=== PATIENT | female | born 1990 | race Caucasian/White ===

== ENCOUNTER 2017-02-09 23:05 | Emergency (ER) | payer SELFPAY ==
--- NOTE | 2017-02-09 23:38 | EDM.PDOC ---
ED HISTORY OF PRESENT ILLNESS - General Chief Complaint: Respiratory Problem Stated Complaint: SICK Time Seen by Provider: 02/09/17 23:15 Source of Information: Reports: Patient History Limitations: Reports: No limitations - History of Present Illness INITIAL COMMENTS - FREE TEXT/NARRATIVE: c/o sore throat sinus congestion cough since yesterday. Symptoms came on all at once. Achey. Severity: moderate - Related Data Allergies/ADRs: Allergies Allergy/AdvReac Type Severity Reaction Status Date / Time nickel Allergy Rash Verified 02/09/17 23:16 sulfamethoxazole Allergy Rash Verified 02/09/17 23:16 [From Bactrim] trimethoprim [From Bactrim] Allergy Rash Verified 02/09/17 23:16 Home Meds: Home Meds . 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: Musculoskeletal History: Reports: Back pain, chronic Neurological History: Reports: Concussion, Migraines Psychiatric History: Reports: ADD, Anxiety, Depression, Panic attack - Infectious Disease History Infectious Disease History: Reports: Chicken pox - Past Surgical History GI Surgical History: Reports: Hernia, abdominal Female Surgical History: Reports: section Musculoskeletal Surgical History: Reports: Other (see below) Other Musculoskeletal Surgeries/Procedures:: Umbilical hernia repair 2008 Social & Family History - Family History Family Medical History: Noncontributory - Tobacco Use Smoking Status *Q: Current Some Day Smoker Years of Tobacco use: 1 Packs/Tins Daily: 0.1 Used Tobacco, but Quit: Yes Month Tobacco Last Used: unkown Second Hand Smoke Exposure: Yes - Caffeine Use Caffeine Use: Reports: Coffee, Soda - Alcohol Use Days Per Week of Alcohol Use: 0 - Recreational Drug Use Recreational Drug Use: No - Living Situation & Occupation Living situation: Reports: with significant other Occupation: employed ED ROS GENERAL - Review of Systems Review Of Systems: See Below Constitutional: Reports: fever, decreased appetite HEENT: Reports: Ear pain, Throat pain Respiratory: Reports: Cough GI/Abdominal: Reports: No symptoms Musculoskeletal: Reports: other (generalized aches) Neurological: Reports: No Symptoms ED EXAM, GENERAL - Physical Exam Exam: See Below Exam Limited By: No limitations General Appearance: alert, mild distress Eye Exam: bilateral eye: EOMI Ears: normal external exam. No: normal TMs (red bilateral) Nose: normal inspection Throat/Mouth: Normal inspection Head: atraumatic, normocephalic Neck: normal inspection Respiratory/Chest: no respiratory distress, lungs clear, other (rare loose bronchial cough) GI/Abdominal: normal bowel sounds Back Exam: normal inspection Neurological: alert, oriented, normal cognition Psychiatric: normal affect, anxious Skin Exam: Warm, Dry, Intact, Normal color Course - Vital Signs Last Recorded V/S: Last Vital Signs Temp 98.4 F 02/10/17 00:40 Pulse 81 02/10/17 00:40 Resp 15 02/10/17 00:40 BP 104/58 L 02/10/17 00:40 Pulse Ox 99 02/10/17 00:40 - Orders/Labs/Meds Orders: Active Orders 24 hr Category Date Time Status CULTURE STREP A CONFIRMATION [] Stat Lab 02/09/17 23:10 Results STREP SCRN A RAPID W CULT CONF [] Stat Lab 02/09/17 23:10 Results Labs: Laboratory Tests 02/09/17 02/09/17 Range/Units 23:45 23:45 WBC 7.4 (5.0-10.0) 10^3/uL RBC 4.97 (4.2-5.4) 10^6/uL Hgb 13.3 (12.0-16.0) g/dL Hct 40.1 (37.0-47.0) % MCV 80.7 (80-100) fL MCH 26.8 L (27.0-34.0) pg MCHC 33.2 (33.0-35.0) g/dL Plt Count 228 (150-450) 10^3/uL Neut % (Auto) 55.0 (42.2-75.2) % Lymph % (Auto) 32.6 (20.5-50.1) % [place] % (Auto) 10.7 H (2-8) % Eos % (Auto) 1.4 (1.0-3.0) % Baso % (Auto) 0.3 (0.0-1.0) % Sodium 136 (135-145) mmol/L Potassium 3.5 L (3.6-5.0) mmol/L Chloride 101 (101-111) mmol/L Carbon Dioxide 27.0 (21.0-31.0) mmol/L Anion Gap 11.5 BUN 15 (7-18) mg/dL Creatinine 0.7 (0.6-1.3) mg/dL Est Cr Clr Drug Dosing 118.43 mL/min Estimated GFR (MDRD) > 60 BUN/Creatinine Ratio 21.42 Glucose 97 (74-105) mg/dL Calcium 8.9 (8.4-10.2) mg/dl Total Bilirubin 0.4 (0.2-1.0) mg/dL AST 30 (10-42) IU/L ALT 38 (10-60) IU/L Alkaline Phosphatase 57 (42-121) IU/L Total Protein 7.9 (6.7-8.2) g/dl Albumin 4.2 (3.2-5.5) g/dl Globulin 3.7 Albumin/Globulin Ratio 1.14 Meds: Medications Discontinued Medications Generic Name Dose Route Start Last Admin Trade Name Freq PRN Reason Stop Dose Admin Acetaminophen 650 mg 02/09/17 23:43 02/09/17 23:53 Tylenol PO 02/09/17 23:44 650 mg NOW ONE Administration Amoxicillin 500 mg 02/10/17 00:52 02/10/17 00:57 Amoxil PO 02/10/17 00:53 500 mg ONETIME ONE Administration Sodium Chloride 1,000 mls @ 999 mls/hr 02/09/17 23:41 02/09/17 23:48 Normal Saline IV 02/10/17 00:41 999 mls/hr .BOLUS ONE Administration Ketorolac Tromethamine 30 mg 02/09/17 23:42 02/09/17 23:55 Toradol IVPUSH 02/09/17 23:43 30 mg ONETIME ONE Administration Ondansetron HCl 4 mg 02/09/17 23:43 02/09/17 23:54 Zofran IV 02/09/17 23:44 4 mg ONETIME ONE Administration Departure - Departure Time of Disposition: 00:50 Disposition: Home, Self-Care 01 Condition: good Clinical Impression: URI (upper respiratory infection) Qualifiers: URI type: unspecified URI Qualified Code(s): J06.9 - Acute upper respiratory infection, unspecified Otitis Qualifiers: Laterality: bilateral Qualified Code(s): H66.93 - Otitis media, unspecified, bilateral Instructions: Otitis Media, Adult, [id number] Forms: ED Department Discharge Additional Instructions: alternate tylenol and ibuprofen for fever body aches increase fluid intake robitussin or muccinex per package instructions for cough amoxicillin 500mg one three times daily for one week - My Orders Last 24 Hours: My Active Orders 02/09/17 23:10 CULTURE STREP A CONFIRMATION [RM] Stat STREP SCRN A RAPID W CULT CONF [] Stat - Assessment/Plan Last 24 Hours: My Active Orders 02/09/17 23:10 CULTURE STREP A CONFIRMATION [RM] Stat STREP SCRN A RAPID W CULT CONF [RM] Stat
[2017-02-09] MEDS ORDERED: Sodium Chloride 0.9% 1,000 ML IV ONE (23:41)
[2017-02-09] MEDS ORDERED: Ketorolac 30 MG/ML SDV IVPUSH ONE (23:42)
[2017-02-09] MEDS ORDERED: Ondansetron 4 MG/2 ML SDV IV ONE (23:43)
[2017-02-09] MEDS ORDERED: Acetaminophen 325 MG Tab PO ONE (23:43)
[2017-02-10 00:10] LABS: CHLORIDE,CL 101 mmol/L (101-111); SODIUM,NA 136 mmol/L (135-145)
[2017-02-10 00:41] VITALS: BP 104/58
[2017-02-10] MEDS ORDERED: Amoxicillin 500 MG Cap PO ONE (00:52)
== END 2017-02-10 01:06 | disposition home or self-care (01) ==
LOC: DL.ED 23:05
DX: J06.9 Acute upper respiratory infection, unspecified (principal); H66.93 Otitis media, unspecified, bilateral; F41.9 Anxiety disorder, unspecified; F32.9 Major depressive disorder, single episode, unspecified; Z88.2 Allergy status to sulfonamides; Z88.8 Allergy status to other drugs, medicaments and biological substances
CPT/HCPCS: 36415; 80053; 85025; 87081; 87430; 87804; 96361; 96374; 96375; 99283; A9270; J1885; J2405; J7030; 99284

== ENCOUNTER 2017-03-30 23:36 | Emergency (ER) | payer MEDICAID ==
[2017-03-30 23:53] VITALS: BP 165/95
[2017-03-31 00:22] LABS: CHLORIDE,CL 101 mmol/L (101-111); SODIUM,NA 136 mmol/L (135-145)
--- NOTE | 2017-03-31 00:46 | EDM.PDOC ---
ED HPI GENERAL MEDICAL PROBLEM - General Chief Complaint: General Stated Complaint: CRAMPS,DIZZINESS,NAUSEA, [id number] Time Seen by Provider: 03/30/17 23:50 Source of Information: Reports: Patient History Limitations: Reports: No Limitations - History of Present Illness INITIAL COMMENTS - FREE TEXT/NARRATIVE: c/o dizziness when turning head today, vomited twice, pelvic cramps. No menses for past 5 months since IUD removed. No cold sx. Ocassional nausea. Onset: today Duration: Hour(s):, Intermittent Location: Reports: head, pelvis Worsens with: Reports: Movement Associated Symptoms: Reports: loss of appetite, nausea/vomiting. Denies: cough , fever/chills, headaches, weakness Pelvic Pain Score (Numeric/FACES): 9 - Related Data Allergies Allergy/AdvReac Type Severity Reaction Status Date / Time nickel Allergy Rash Verified 03/30/17 23:56 sulfamethoxazole Allergy Rash Verified 03/30/17 23:56 [From Bactrim] trimethoprim [From Bactrim] Allergy Rash Verified 03/30/17 23:56 Home Meds: Home Meds . 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: Musculoskeletal History: Reports: Back pain, chronic Neurological History: Reports: Concussion, Migraines Psychiatric History: Reports: ADD, Anxiety, Depression, Panic attack Endocrine/Metabolic History: Reports: None Hematologic History: Reports: None Immunologic History: Reports: None Oncologic (Cancer) History: Reports: None Dermatologic History: Reports: None - Infectious Disease History Infectious Disease History: Reports: Chicken pox - Past Surgical History GI Surgical History: Reports: Hernia, abdominal Female Surgical History: Reports: section Musculoskeletal Surgical History: Reports: Other (see below) Other Musculoskeletal Surgeries/Procedures:: Umbilical hernia repair 2008 Social & Family History - Family History Family Medical History: Noncontributory - Tobacco Use Smoking Status *Q: Never Smoker Years of Tobacco use: 1 Packs/Tins Daily: 0.1 Used Tobacco, but Quit: Yes Month Tobacco Last Used: unkown Second Hand Smoke Exposure: No - Caffeine Use Caffeine Use: Reports: Coffee, Soda - Alcohol Use Days Per Week of Alcohol Use: 0 - Recreational Drug Use Recreational Drug Use: No - Living Situation & Occupation Living situation: Reports: with significant other Occupation: employed ED ROS GENERAL - Review of Systems Review Of Systems: See Below Constitutional: Reports: Decreased Appetite HEENT: Reports: No Symptoms Respiratory: Reports: No Symptoms Cardiovascular: Reports: No Symptoms GI/Abdominal: Reports: Vomiting (x2) : Reports: Irregular Menses, Pain (light cramping twinges). Denies: Frequency , Urgency Musculoskeletal: Reports: No Symptoms Skin: Reports: No Symptoms Neurological: Reports: Other (dizziness when turns head rapidly or rolls over, none noted when moving from sitting to standing). Denies: Headache Psychiatric: Reports: No Symptoms Hematologic/Lymphatic: Reports: No Symptoms ED EXAM, GENERAL - Physical Exam Exam: See Below Exam Limited By: No Limitations General Appearance: Alert, No Apparent Distress (visiting with friend, bright lights on easily and rapidly turns head to demonstrate when she fells dizzy and no symptoms reproduced. Texting on phone.) Eye Exam: Bilateral Eye: EOMI, Nystagmus (end phase lateral), PERRL Ears: Normal External Exam, Normal TMs Nose: Normal Inspection Throat/Mouth: Normal Inspection Head: Atraumatic, Normocephalic Neck: Normal Inspection Respiratory/Chest: No Respiratory Distress, Lungs Clear Cardiovascular: Normal Peripheral Pulses, Regular Rate, Rhythm GI/Abdominal: Normal Bowel Sounds, Soft, Non-Tender Back Exam: Normal Inspection Extremities: Normal Inspection Neurological: Alert, Oriented, CN II-XII Intact, Normal Cognition, Normal Gait Psychiatric: Normal Affect, Normal Mood Skin Exam: Warm, Dry, Intact, Normal Color Course - Vital Signs Last Recorded V/S: Last Vital Signs Temp 95.7 F 03/30/17 23:48 Pulse 66 03/30/17 23:48 Resp 18 03/30/17 23:48 BP 165/95 H 03/30/17 23:48 Pulse Ox 97 03/30/17 23:48 - Orders/Labs/Meds Labs: Laboratory Tests 03/30/17 03/30/17 03/30/17 Range/Units 23:50 23:50 23:56 WBC 7.1 (5.0-10.0) 10^3/uL RBC 5.18 (4.2-5.4) 10^6/uL Hgb 13.6 (12.0-16.0) g/dL Hct 41.3 (37.0-47.0) % MCV 79.7 L (80-100) fL MCH 26.3 L (27.0-34.0) pg MCHC 32.9 L (33.0-35.0) g/dL Plt Count 284 (150-450) 10^3/uL Neut % (Auto) 43.1 (42.2-75.2) % Lymph % (Auto) 45.5 (20.5-50.1) % [place] % (Auto) 8.9 H (2-8) % Eos % (Auto) 2.4 (1.0-3.0) % Baso % (Auto) 0.1 (0.0-1.0) % Sodium (135-145) mmol/L Potassium (3.6-5.0) mmol/L Chloride (101-111) mmol/L Carbon Dioxide (21.0-31.0) mmol/L Anion Gap BUN (7-18) mg/dL Creatinine (0.6-1.3) mg/dL Est Cr Clr Drug Dosing mL/min Estimated GFR (MDRD) BUN/Creatinine Ratio Glucose (74-105) mg/dL Calcium (8.4-10.2) mg/dl Total Bilirubin (0.2-1.0) mg/dL AST (10-42) IU/L ALT (10-60) IU/L Alkaline Phosphatase (42-121) IU/L Total Protein (6.7-8.2) g/dl Albumin (3.2-5.5) g/dl Globulin Albumin/Globulin Ratio Amylase (28-100) U/L Urine Color Yellow (YELLOW) Urine Appearance Slightly cloudy (CLEAR) Urine pH 7.0 (5.0-9.0) Ur Specific [place] 1.020 (1.005-1.030) Urine Protein Trace H (NEGATIVE) Urine Glucose (UA) Negative (NEGATIVE) Urine Ketones Trace H (NEGATIVE) Urine Occult Blood Negative (NEGATIVE) Urine Nitrite Negative (NEGATIVE) Urine Bilirubin Negative (NEGATIVE) Urine Urobilinogen 1.0 (0.2-1.0) mg/dL Ur Leukocyte Esterase Negative (NEGATIVE) Urine RBC Not seen /HPF Urine WBC 0-5 (0-5/HPF) /HPF Ur Epithelial Cells Few /HPF Amorphous Sediment Many H (0/HPF) /HPF Urine Bacteria Moderate H (0-FEW/HPF) /HPF Urine HCG, Qual Negative 03/30/17 Range/Units 23:56 WBC (5.0-10.0) 10^3/uL RBC (4.2-5.4) 10^6/uL Hgb (12.0-16.0) g/dL Hct (37.0-47.0) % MCV (80-100) fL MCH (27.0-34.0) pg MCHC (33.0-35.0) g/dL Plt Count (150-450) 10^3/uL Neut % (Auto) (42.2-75.2) % Lymph % (Auto) (20.5-50.1) % [place] % (Auto) (2-8) % Eos % (Auto) (1.0-3.0) % Baso % (Auto) (0.0-1.0) % Sodium 136 (135-145) mmol/L Potassium 3.4 L (3.6-5.0) mmol/L Chloride 101 (101-111) mmol/L Carbon Dioxide 28.0 (21.0-31.0) mmol/L Anion Gap 10.4 BUN 15 (7-18) mg/dL Creatinine 1.0 (0.6-1.3) mg/dL Est Cr Clr Drug Dosing 82.90 mL/min Estimated GFR (MDRD) > 60 BUN/Creatinine Ratio 15.00 Glucose 115 H (74-105) mg/dL Calcium 9.1 (8.4-10.2) mg/dl Total Bilirubin 0.5 (0.2-1.0) mg/dL AST 37 (10-42) IU/L ALT 40 (10-60) IU/L Alkaline Phosphatase 65 (42-121) IU/L Total Protein 7.7 (6.7-8.2) g/dl Albumin 4.1 (3.2-5.5) g/dl Globulin 3.6 Albumin/Globulin Ratio 1.14 Amylase 60 (28-100) U/L Urine Color (YELLOW) Urine Appearance (CLEAR) Urine pH (5.0-9.0) Ur Specific [place] (1.005-1.030) Urine Protein (NEGATIVE) Urine Glucose (UA) (NEGATIVE) Urine Ketones (NEGATIVE) Urine Occult Blood (NEGATIVE) Urine Nitrite (NEGATIVE) Urine Bilirubin (NEGATIVE) Urine Urobilinogen (0.2-1.0) mg/dL Ur Leukocyte Esterase (NEGATIVE) Urine RBC /HPF Urine WBC (0-5/HPF) /HPF Ur Epithelial Cells /HPF Amorphous Sediment (0/HPF) /HPF Urine Bacteria (0-FEW/HPF) /HPF Urine HCG, Qual Departure - Departure Time of Disposition: 00:38 Disposition: Home, Self-Care 01 Condition: good Clinical Impression: Pelvic cramping, Negative test BPV (benign positional vertigo) Qualifiers: Laterality: unspecified laterality Qualified Code(s): H81.10 - Benign paroxysmal vertigo, unspecified ear - Discharge Information Instructions: Benign Positional Vertigo Referrals: Nicky Sylvester MD [Primary Care Provider] - Forms: ED Department Discharge Additional Instructions: light bland diet ,advance as tolerated increase fluids gradually if nausea present clinic next week if symptoms continue change positions slowly over the counter meclizine 25mg every 6 hours as needed for dizziness
== END 2017-03-31 00:49 | disposition home or self-care (01) ==
LOC: DL.ED 23:36
DX: H81.10 Benign paroxysmal vertigo, unspecified ear (principal); R10.2 Pelvic and perineal pain; F98.8 Other specified behavioral and emotional disorders with onset usually occurring in childhood and adolescence; F41.9 Anxiety disorder, unspecified; F32.9 Major depressive disorder, single episode, unspecified; Z32.02 Encounter for pregnancy test, result negative; Z88.2 Allergy status to sulfonamides; Z88.8 Allergy status to other drugs, medicaments and biological substances
CPT/HCPCS: 36415; 80053; 81001; 81025; 82150; 85025; 99284

== ENCOUNTER 2017-10-17 05:26 | Emergency (ER) | payer BC, MEDICAID ==
--- NOTE | 2017-10-17 05:42 | EDM.PDOC ---
ED HPI GENERAL MEDICAL PROBLEM - General Chief Complaint: Lower Extremity Injury/Pain Stated Complaint: FRACTURED FOOT [id number] Time Seen by Provider: 10/17/17 05:40 Source of Information: Reports: Patient History Limitations: Reports: No Limitations - History of Present Illness INITIAL COMMENTS - FREE TEXT/NARRATIVE: c/o pain to right foot and outer ankle. 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 Onset: Today Right Feet Pain Score (Numeric/FACES): 10 - Related Data Allergies Allergy/AdvReac Type Severity Reaction Status Date / Time nickel Allergy Rash Verified 10/17/17 05:29 sulfamethoxazole Allergy Rash Verified 10/17/17 05:29 [From Bactrim] trimethoprim [From Bactrim] Allergy Rash Verified 10/17/17 05:29 Home Meds: Home Meds . 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: Musculoskeletal History: Reports: Back Pain, Chronic Neurological History: Reports: Concussion, Migraines Psychiatric History: Reports: ADD, Anxiety, Depression, Panic Attack Endocrine/Metabolic History: Reports: None Hematologic History: Reports: None Immunologic History: Reports: None Oncologic (Cancer) History: Reports: None Dermatologic History: Reports: None - Infectious Disease History Infectious Disease History: Reports: Chicken Pox - Past Surgical History GI Surgical History: Reports: Hernia, Abdominal Female Surgical History: Reports: Section Musculoskeletal Surgical History: Reports: Other (See Below) Social & Family History - Family History Family Medical History: Noncontributory - Tobacco Use Smoking Status *Q: Never Smoker Years of Tobacco use: 1 Packs/Tins Daily: 0.1 Used Tobacco, but Quit: Yes Month Tobacco Last Used: unkown Second Hand Smoke Exposure: No - Caffeine Use Caffeine Use: Reports: Coffee, Soda - Alcohol Use Days Per Week of Alcohol Use: 0 - Recreational Drug Use Recreational Drug Use: No - Living Situation & Occupation Living situation: Reports: with Significant Other Occupation: Employed Review of Systems - Review of Systems Review Of Systems: ROS reveals no pertinent complaints other than HPI. ED EXAM, GENERAL - Physical Exam Exam: See Below Exam Limited By: No Limitations General Appearance: Alert, Mild Distress Eye Exam: Bilateral Eye: EOMI Ears: Normal External Exam Nose: Normal Inspection Throat/Mouth: Normal Inspection Head: Atraumatic, Normocephalic Neck: Full Range of Motion Respiratory/Chest: No Respiratory Distress Cardiovascular: Normal Peripheral Pulses, Regular Rate, Rhythm Extremities: Other (Mild swelling right forefoot, bruising lateral forefoot. Pain with plalpation of lateral ankle. ). No: Normal Range of Motion Neurological: Alert, Oriented, Normal Cognition Psychiatric: Normal Affect Skin Exam: Warm, Dry, Intact Course - Vital Signs Last Recorded V/S: Last Vital Signs Temp 97.6 F 10/17/17 05:34 Pulse 73 10/17/17 05:34 Resp 20 10/17/17 05:34 BP 150/80 H 10/17/17 05:34 Pulse Ox 98 10/17/17 05:34 Departure - Departure Time of Disposition: 06:40 Disposition: Home, Self-Care 01 Condition: Good Clinical Impression: Sprain of foot, right Qualifiers: Encounter type: initial encounter Qualified Code(s): S93.601A - Unspecified sprain of right foot, initial encounter - Discharge Information Instructions: Foot Sprain Forms: ED Department Discharge Additional Instructions: rest ice , elevation, ryan wrap to foot and ankle weight bearing as tolerated clinic follow up next week if not improving tylenol or ibuprofen for discomfort
[2017-10-17 08:59] VITALS: BP 150/80
== END 2017-10-17 06:48 | disposition home or self-care (01) ==
LOC: DL.ED 05:26
DX: S93.601A Unspecified sprain of right foot, initial encounter (principal); Z88.2 Allergy status to sulfonamides; Z88.1 Allergy status to other antibiotic agents; W18.40XA Slipping, tripping and stumbling without falling, unspecified, initial encounter
CPT/HCPCS: 73600-RT; 73630-RT; 99283

== ENCOUNTER 2017-10-21 03:19 | Emergency (ER) | payer BC ==
[2017-10-21 03:46] VITALS: BP 133/69
[2017-10-21 04:07] LABS: CHLORIDE,CL 104 mmol/L (101-111); SODIUM,NA 137 mmol/L (135-145)
--- NOTE | 2017-10-21 04:23 | EDM.PDOC ---
ED HPI GENERAL MEDICAL PROBLEM - General Chief Complaint: REHAB AID Problem Stated Complaint: HEAVY BLEEDING AND BAD PAIN, UNSURE IF [id number] Time Seen by Provider: 10/21/17 04:15 Source of Information: Reports: Patient History Limitations: Reports: No Limitations - History of Present Illness INITIAL COMMENTS - FREE TEXT/NARRATIVE: This 27 yo female patient reports to the ED due to heavy vaginal bleeding. The patient reports she is unsure if she is . The patient reports she has "always" been on control and has had very light menstrual cycles in the past. The patient reports never having this much bleeding. Onset: Today Duration: Constant Location: Reports: Abdomen (lower abdominal cramping) Quality: Reports: Ache (cramping) Severity: Moderate Improves with: Reports: None Worsens with: Reports: None Associated Symptoms: Reports: No Other Symptoms Upper Pelvic Pain Score (Numeric/FACES): 9 - Related Data Allergies Allergy/AdvReac Type Severity Reaction Status Date / Time nickel Allergy Rash Verified 10/21/17 03:47 sulfamethoxazole Allergy Rash Verified 10/21/17 03:47 [From Bactrim] trimethoprim [From Bactrim] Allergy Rash Verified 10/21/17 03:47 Home Meds: Home Meds . 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 History: Reports: None REHAB AID History: Reports: Musculoskeletal History: Reports: Back Pain, Chronic Neurological History: Reports: Concussion, Migraines Psychiatric History: Reports: ADD, Anxiety, Depression, Panic Attack Endocrine/Metabolic History: Reports: None Hematologic History: Reports: None Immunologic History: Reports: None Oncologic (Cancer) History: Reports: None Dermatologic History: Reports: None - Infectious Disease History Infectious Disease History: Reports: Chicken Pox - Past Surgical History GI Surgical History: Reports: Hernia, Abdominal Female Surgical History: Reports: Section Musculoskeletal Surgical History: Reports: Other (See Below) Social & Family History - Family History Family Medical History: Noncontributory - Tobacco Use Smoking Status *Q: Current Some Day Smoker Years of Tobacco use: 2 Packs/Tins Daily: 1 Used Tobacco, but Quit: Yes Month Tobacco Last Used: unkown Second Hand Smoke Exposure: No - Caffeine Use Caffeine Use: Reports: Coffee, Soda, Tea - Alcohol Use Days Per Week of Alcohol Use: 0 Date of Last Drink: 10/20/17 Time of Last Drink: 03:00 - Recreational Drug Use Recreational Drug Use: No - Living Situation & Occupation Living situation: Reports: with Significant Other Occupation: Employed ED ROS GENERAL - Review of Systems Review Of Systems: ROS reveals no pertinent complaints other than HPI. ED EXAM, GI/ABD - Physical Exam Exam: See Below Exam Limited By: No Limitations General Appearance: Alert, WD/WN, Moderate Distress, Obese Eyes: Bilateral: Normal Appearance, EOMI Ears: Normal External Exam, Normal Canal, Hearing Grossly Normal, Normal TMs Nose: Normal Inspection, Normal Mucosa, No Blood Throat/Mouth: Normal Inspection, Normal Lips, Normal Teeth, Normal Gums, Normal Oropharynx, Normal Voice, No Airway Compromise Head: Atraumatic, Normocephalic Neck: Normal Inspection, Supple, Non-Tender, Full Range of Motion Respiratory/Chest: No Respiratory Distress, Lungs Clear, Normal Breath Sounds, No Accessory Muscle Use, Chest Non-Tender Cardiovascular: Normal Peripheral Pulses, Regular Rate, Rhythm, No Edema, No Gallop, No JVD, No Murmur, No Rub GI/Abdominal Exam: Normal Bowel Sounds, Soft, Non-Tender, No Organomegaly, No Distention, No Abnormal Bruit, No Mass, Pelvis Stable, Other (obese) (Female) Exam: Deferred Rectal (Female) Exam: Deferred Back Exam: Normal Inspection, Full Range of Motion, NT Extremities: Normal Inspection, Normal Range of Motion, Non-Tender, Normal Capillary Refill, No Pedal Edema Neurological: Alert, Oriented, CN II-XII Intact, Normal Cognition, Normal Gait, Normal Reflexes, No Motor/Sensory Deficits Psychiatric: Normal Affect, Normal Mood Skin Exam: Warm, Dry, Intact, Normal Color, No Rash Lymphatic: No Adenopathy Course - Vital Signs Last Recorded V/S: Last Vital Signs Temp 36.6 C 10/21/17 03:29 Pulse 86 10/21/17 03:29 Resp 20 10/21/17 03:29 BP 133/69 10/21/17 03:29 Pulse Ox 100 10/21/17 03:29 - Orders/Labs/Meds Orders: Active Orders 24 hr Category Date Time Status DRUG SCREEN URINE BIORAD [URCHEM] Stat Lab 10/21/17 03:29 Uncollected UA W/MICROSCOPIC [URIN] Stat Lab 10/21/17 03:29 Uncollected Labs: Laboratory Tests 10/21/17 10/21/17 10/21/17 Range/Units 03:40 03:40 03:40 WBC 8.2 (5.0-10.0) 10^3/uL RBC 4.75 (4.2-5.4) 10^6/uL Hgb 12.4 (12.0-16.0) g/dL Hct 38.1 (37.0-47.0) % MCV 80.2 (80-100) fL MCH 26.1 L (27.0-34.0) pg MCHC 32.5 L (33.0-35.0) g/dL Plt Count 282 (150-450) 10^3/uL Neut % (Auto) 55.7 (42.2-75.2) % Lymph % (Auto) 33.8 (20.5-50.1) % Bonner % (Auto) 9.2 H (2-8) % Eos % (Auto) 1.1 (1.0-3.0) % Baso % (Auto) 0.2 (0.0-1.0) % Sodium 137 (135-145) mmol/L Potassium 3.8 (3.6-5.0) mmol/L Chloride 104 (101-111) mmol/L Carbon Dioxide 25.0 (21.0-31.0) mmol/L Anion Gap 11.8 BUN 17 (7-18) mg/dL Creatinine 0.9 (0.6-1.3) mg/dL Est Cr Clr Drug Dosing 92.11 mL/min Estimated GFR (MDRD) > 60 BUN/Creatinine Ratio 18.88 Glucose 105 (74-105) mg/dL Calcium 8.8 (8.4-10.2) mg/dl Total Bilirubin 0.5 (0.2-1.0) mg/dL AST 29 (10-42) IU/L ALT 42 (10-60) IU/L Alkaline Phosphatase 53 (42-121) IU/L Total Protein 7.6 (6.7-8.2) g/dl Albumin 3.9 (3.2-5.5) g/dl Globulin 3.7 Albumin/Globulin Ratio 1.05 HCG, Qual Negative HCG, Quant 0 (0-25) mIU/ml Beta HCG, Quant < 1050 mIU/ml Departure - Departure Time of Disposition: 04:21 Disposition: Home, Self-Care 01 Condition: Fair Clinical Impression: Heavy menstrual bleeding Qualifiers: Menorrahagia type: with irregular cycle Qualified Code(s): N92.1 - Excessive and frequent menstruation with irregular cycle - Discharge Information Instructions: Menorrhagia, [id number] Forms: ED Department Discharge Care Plan Goals: The patient was advised of the examination and lab results during the visit. The patient was encouraged to continue to monitor her symptoms. If the patient has any additional symptoms or further concerns, the patient should visit her primary care facility or return to the emergency department. - My Orders Last 24 Hours: My Active Orders 10/21/17 03:29 DRUG SCREEN URINE BIORAD [URCHEM] Stat UA W/MICROSCOPIC [URIN] Stat - Assessment/Plan Last 24 Hours: My Active Orders 10/21/17 03:29 DRUG SCREEN URINE BIORAD [URCHEM] Stat UA W/MICROSCOPIC [URIN] Stat
== END 2017-10-21 04:30 | disposition home or self-care (01) ==
LOC: DL.ED 03:19
DX: N92.1 Excessive and frequent menstruation with irregular cycle (principal); F17.210 Nicotine dependence, cigarettes, uncomplicated; Z88.2 Allergy status to sulfonamides; Z88.1 Allergy status to other antibiotic agents
CPT/HCPCS: 36415; 80053; 84702; 84703; 85025; 99284

== ENCOUNTER 2018-02-27 21:47 | Emergency (ER) | payer BC ==
--- NOTE | 2018-02-27 22:13 | EDM.PDOC ---
ED HPI GENERAL MEDICAL PROBLEM - General Chief Complaint: ENT Problem Stated Complaint: [id number] pain in both ears Time Seen by Provider: 02/27/18 22:13 Source of Information: Reports: Patient, RN, RN Notes Reviewed History Limitations: Reports: No Limitations - History of Present Illness INITIAL COMMENTS - FREE TEXT/NARRATIVE: Pt presents to the ER with c/o pain and buzzing in both ears. She states this began yesterday. She states 2 days ago she began with a runny/stuffy nose, and sinus congestion. Pt denies fever or chills. Bilateral Ear Pain Score (Numeric/FACES): 8 - Related Data Allergies Allergy/AdvReac Type Severity Reaction Status Date / Time nickel Allergy Rash Verified 02/27/18 22:18 sulfamethoxazole Allergy Rash Verified 02/27/18 22:18 [From Bactrim] trimethoprim [From Bactrim] Allergy Rash Verified 02/27/18 22:18 Home Meds: Home Meds . 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 History: Reports: None [employer] History: Reports: Musculoskeletal History: Reports: Back Pain, Chronic Neurological History: Reports: Concussion, Migraines Psychiatric History: Reports: ADD, Anxiety, Depression, Panic Attack Endocrine/Metabolic History: Reports: None Hematologic History: Reports: None Immunologic History: Reports: None Oncologic (Cancer) History: Reports: None Dermatologic History: Reports: None - Infectious Disease History Infectious Disease History: Reports: Chicken Pox - Past Surgical History GI Surgical History: Reports: Hernia, Abdominal Female Surgical History: Reports: Section Musculoskeletal Surgical History: Reports: Other (See Below) Social & Family History - Family History Family Medical History: Noncontributory - Tobacco Use Smoking Status *Q: Current Some Day Smoker Years of Tobacco use: 2 Packs/Tins Daily: 1 Used Tobacco, but Quit: Yes Month/Year Tobacco Last Used: unkown Second Hand Smoke Exposure: No - Caffeine Use Caffeine Use: Reports: Coffee, Soda, Tea - Alcohol Use Days Per Week of Alcohol Use: 0 - Recreational Drug Use Recreational Drug Use: No - Living Situation & Occupation Living situation: Reports: with Significant Other Occupation: Employed ED ROS ENT - Review of Systems Review Of Systems: ROS reveals no pertinent complaints other than HPI. ED EXAM, ENT - Physical Exam Exam: See Below Exam Limited By: No Limitations General Appearance: Alert, WD/WN, No Apparent Distress Eye Exam: Bilateral Eye: EOMI, Normal Inspection Ears: Normal Canal, TM Dullness, TM Fluid Nose: Normal Inspection Mouth/Throat: Normal Inspection, Normal Gums, Normal Lips, Normal Oropharynx, Normal Teeth Head: Atraumatic, Normocephalic Neck: Normal Inspection, Supple, Non-Tender, Full Range of Motion Respiratory/Chest: No Respiratory Distress, Lungs Clear, Normal Breath Sounds, No Accessory Muscle Use, Chest Non-Tender Cardiovascular: Normal Peripheral Pulses, Regular Rate, Rhythm, No Edema, No Gallop, No JVD, No Murmur, No Rub GI/Abdominal: Normal Bowel Sounds, Soft, Non-Tender, No Organomegaly, No Distention, No Abnormal Bruit, No Mass (Female) Exam: Deferred Rectal (Female) Exam: Deferred Back: Normal Inspection, Full Range of Motion Extremities: Normal Inspection, Normal Range of Motion, Non-Tender, No Pedal Edema, Normal Capillary Refill Neurological: Alert, Oriented, CN II-XII Intact, Normal Cognition, Normal Gait, Normal Reflexes, No Motor/Sensory Deficits Psychiatric: Normal Affect, Normal Mood Skin: Warm, Dry, Intact, Normal Color, No Rash Lymphatic: No Adenopathy Course - Vital Signs Last Recorded V/S: Last Vital Signs Temp 97.8 F 02/27/18 22:07 Pulse 68 02/27/18 22:07 Resp 18 02/27/18 22:07 BP 132/81 02/27/18 22:07 Pulse Ox 98 02/27/18 22:07 Departure - Departure Time of Disposition: 22:27 Disposition: Home, Self-Care 01 Condition: Fair Clinical Impression: Acute middle ear effusion Qualifiers: Laterality: bilateral Qualified Code(s): H65.193 - Other acute nonsuppurative otitis media, bilateral - Discharge Information Referrals: PCP,None [Primary Care Provider] - Forms: ED Department Discharge Additional Instructions: Flonase daily for a week Over the counter sudafed Saline nasal rinses Tylenol and/or ibuprofen for pain/fever Follow up with your primary care facility
[2018-02-27 22:18] VITALS: BP 132/81
== END 2018-02-27 22:37 | disposition home or self-care (01) ==
LOC: DL.ED 21:47
DX: H65.193 Other acute nonsuppurative otitis media, bilateral (principal); Z91.048 Other nonmedicinal substance allergy status; Z88.2 Allergy status to sulfonamides; Z88.1 Allergy status to other antibiotic agents; Z87.891 Personal history of nicotine dependence
CPT/HCPCS: 99282

== ENCOUNTER 2018-03-27 17:15 | Emergency (ER) | payer OTHER, BC ==
[2018-03-27] MEDS ORDERED: Acetaminophen/HYDROcodone 325-10 MG Tab PO ONE (17:16)
[2018-03-27] MEDS ORDERED: Morphine 10 MG/ML Syringe IVPUSH ONE ×2 (17:29→18:30)
[2018-03-27] MEDS ORDERED: Ondansetron 4 MG/2 ML SDV IV ONE ×2 (17:29→20:34)
[2018-03-27] MEDS ORDERED: Sodium Chloride 0.9% 1,000 ML IV ONE (17:29)
[2018-03-27] MEDS ORDERED: Sodium Chloride 0.9% 10 ML Syringe FLUSH PRN ×2 (17:30→17:34)
[2018-03-27] MEDS ORDERED: Diphtheria,Pertussis(Acell),Tetanus Vaccine 0.5 ML SDV IM ONE (17:35)
[2018-03-27] MEDS ORDERED: Iopamidol 612 MG/ML 75 ML Bottle IVPUSH ONE (17:44)
[2018-03-27] MEDS ORDERED: Iopamidol 612 MG/ML 50 ML SDV IVPUSH ONE (17:44)
[2018-03-27 18:03] LABS: CHLORIDE,CL 105 mmol/L (101-111); SODIUM,NA 139 mmol/L (135-145)
[2018-03-27] MEDS ORDERED: Bacitracin Oint 1 GM U/D Packet ONE (18:38)
[2018-03-27] MEDS ORDERED: Acetaminophen/HYDROcodone 325-5 MG Tab ONE (21:02)
--- NOTE | 2018-03-29 07:26 | EKG ---
03/27/2018- GABRIEL [place] - FINDINGS: EKG, per my reading, shows sinus rhythm at the rate of 87. MODL /[id number]
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
== END 2018-03-27 21:10 | disposition home or self-care (01) ==
LOC: DL.ED 17:15
DX: S52.352A Displaced comminuted fracture of shaft of radius, left arm, initial encounter for closed fracture (principal); S50.02XA Contusion of left elbow, initial encounter; S80.02XA Contusion of left knee, initial encounter; Z88.2 Allergy status to sulfonamides; Z88.1 Allergy status to other antibiotic agents; Z91.048 Other nonmedicinal substance allergy status; V43.52XA Car driver injured in collision with other type car in traffic accident, initial encounter
CPT/HCPCS: 29105; 36415; 70450; 71260; 72125; 73090; 73560; 73610; 74177; 80053; 80305; 81001; 81025; 82150; 82962; 83690; 84484; 85025; 85610; 85730; 90471; 90715; 93005; 96361; 96374; 96375; 96376; 99285; A9270; G0480; J2270; J2405; J7030; J7050; Q9967

== ENCOUNTER 2019-01-29 07:54 | Day surgery (SDC) | payer MEDICAID ==
[~2019-01-29 07:54] MED LIST: Lactated Ringers 1,000 ML IV SCH
[2019-01-29] MEDS ORDERED: fentaNYL 100 MCG/2 ML SDV IV ONE (07:55)
[2019-01-29] MEDS ORDERED: Propofol 200 MG/20 ML SDV IV ONE (07:55)
[2019-01-29] MEDS ORDERED: Midazolam 1 MG/ML 2 ML SDV IV ONE (07:55)
[2019-01-29] MEDS ORDERED: Rocuronium 100 MG/10 ML MDV IV ONE (07:55)
[2019-01-29] MEDS ORDERED: Glycopyrrolate 0.2 MG/ML 2 ML SDV IV ONE (07:55)
[2019-01-29] MEDS ORDERED: Dexamethasone 4 MG/ML SDV IV ONE (07:55)
[2019-01-29] MEDS ORDERED: Ondansetron 4 MG/2 ML SDV IV ONE ×2 (07:55→13:35)
[2019-01-29] MEDS ORDERED: Ketorolac 30 MG/ML SDV IVPUSH ONE (07:55)
[2019-01-29] MEDS ORDERED: Succinylcholine 200 MG/10 ML MDV IV ONE (07:55)
[2019-01-29] MEDS ORDERED: ceFAZolin 2 GM in Premix Bag 1 BAG IV ONE (09:40)
[2019-01-29] MEDS ORDERED: Scopolamine 1.5 MG Transdermal Patch TRDERM PRN (09:41)
[2019-01-29] MEDS ORDERED: Scopolamine 1.5 MG Transdermal Patch ONE (09:47)
--- NOTE | 2019-01-29 11:44 | OR ---
DATE: 01/29/2019 PREOPERATIVE DIAGNOSES: Chronic cholecystitis and cholelithiasis. POSTOPERATIVE DIAGNOSES: Chronic cholecystitis and cholelithiasis. PROCEDURE: Laparoscopic cholecystectomy. ANESTHESIA: General. ESTIMATED BLOOD LOSS: Minimal. SPECIMEN: Gallbladder and stone. COMPLICATIONS: None. INDICATION FOR PROCEDURE: This 29-year-old female presented to the Surgery Clinic yesterday with several-day history of nausea and vomiting. She has an ultrasound that shows a single stone. PROCEDURE IN DETAIL: After adequate preparation, an umbilical trocar site was made, and a 5-mm trocar was inserted. The abdomen was insufflated and then examined with a laparoscope. No abnormalities or injuries were noted. Three other trocars were placed under direct vision. There were some omental adhesions around the gallbladder. These were taken down by cautery dissection. The cystic triangle structures were then dissected free, and the cystic duct and artery were separately triply clipped and divided. The gallbladder was taken off the liver bed using blunt, sharp, and Bovie dissection; and the gallbladder was removed through the epigastric trocar site. There was no spillage of bile or stones. The right upper quadrant was irrigated with saline and suctioned clear. The abdomen was desufflated, and the skin was closed with Monocryl. [facility] /[id number]
[2019-01-29] MEDS ORDERED: Acetaminophen/oxyCODONE 325-5 MG Tab PO ONE (13:10)
[2019-01-29] MEDS ORDERED: Morphine 2 MG/ML Syringe IVPUSH ONE ×2 (13:22→13:28)
[2019-01-29] MEDS ORDERED: Ondansetron 4 MG/2 ML SDV IVPUSH PRN (13:52)
[2019-01-29] MEDS ORDERED: Acetaminophen/oxyCODONE 325-5 MG Tab PO PRN (13:52)
[2019-01-29] MEDS ORDERED: Morphine 2 MG/ML Syringe IVPUSH PRN (13:52)
[2019-01-29] MEDS ORDERED: Sodium Chloride 0.9% 10 ML Syringe FLUSH PRN (13:55)
--- NOTE | 2019-01-29 13:58 | PCM.SN ---
- Free Text/Narrative Note: Patient is post-op laparoscopic cholecystectomy and cannot control her pain with IV Morphine. Also cannot control her nausea and vomiting with IV Zofran. Will keep overnight for observation.
--- NOTE | 2019-01-30 08:47 | PCM.SN ---
- Free Text/Narrative Note: Stable POD #1. Pain controlled. PO intake good. Wounds clean and dry. Can discharge today. No restrictions on diet or activity. FU if needed. Percocet #20 given for pain.
[2019-01-30 12:04] VITALS: BP 124/63
== END 2019-01-30 09:53 | disposition home or self-care (01) ==
LOC: DL.SDS 07:54 → EDSTATUS 09:30 → DL.MS 13:53 → DL.SDS 01-30 09:53
PROVIDERS: ATTEND Surgery
DX: K80.10 Calculus of gallbladder with chronic cholecystitis without obstruction (principal); Z88.2 Allergy status to sulfonamides; Z91.048 Other nonmedicinal substance allergy status
CPT/HCPCS: A9270-GY; J0330; J0690; J1100; J1885; J2250; J2270; J2405; J2704; J3010; J3490; J7120

== ENCOUNTER 2019-08-26 06:32 | Day surgery (SDC) | payer MEDICAID ==
[~2019-08-26 06:32] MED LIST changes: -Lactated Ringers 1,000 ML IV SCH; +Midazolam 1 MG/ML 2 ML SDV ONE; +fentaNYL 100 MCG/2 ML SDV ONE
[2019-08-26] MEDS ORDERED: Midazolam 1 MG/ML 2 ML SDV IV ONE ×3 (06:33→07:38)
[2019-08-26] MEDS ORDERED: fentaNYL 100 MCG/2 ML SDV IV ONE ×3 (06:33→07:37)
[2019-08-26] MEDS ORDERED: Dextrose 5%-0.45% NaCl 1,000 ML IV SCH (07:00)
[2019-08-26 10:54] VITALS: BP 111/68; PULSE 66
--- NOTE | 2019-08-26 14:11 | OR ---
DATE: 08/26/2019 PROCEDURE: Esophagogastroduodenoscopy and multiple pinch biopsies. INSTRUMENT USED: [id number] Olympus video panendoscope. PREMEDICATIONS: No oral or topical anesthesia used. Fentanyl 100 mcg intravenous, Versed 2 mg intravenous. Nasal O2 cannula. The procedure was done under pulse oximetry, BP recording, and monitor and storage bin tender. INDICATION: The patient with persistent upper abdominal and chest pain, unexplained and responsive to medical measures, also found to be iron deficient. Esophagogastroduodenoscopy is performed for detection of any active erosive lesions, [place] esophagus and/or malignancy also under consideration, H. pylori status to be determined, small bowel biopsies to be obtained for celiac disease if indicated, endoscopic hemostasis therapy if needed. DESCRIPTION OF PROCEDURE: The scope was passed with ease. Adequate visualization of the esophagus was made from proximal to distal areas. No upper esophageal lesions identified. No distal esophageal stricture. No uphill or downhill esophageal varices. No Kelly-Gonzalez tear. No evidence of erosive esophagitis by [place] criteria. No esophageal polyp or tumor mass identified. Z-line was noted at around 36 cm distal to the oral verge, 4- quadrant biopsies were taken and sent for any evidence of intestinal metaplasia. No proximal gastric varices noted. Gastric fundus examination by retroflexion showed no polypoid lesions. No gastric ulcer, malignant mass, or vascular ectasia identified. Multiple pinch biopsies were obtained from the gastric antrum and proximal body and sent for PyloriTek test for H. pylori and histopathology. Duodenal bulb showed no ulcer. Visualized second part of the duodenum was unremarkable. Multiple pinch biopsies, 4 in number, were taken from different areas of the second part of the duodenum and tissues were also obtained from the duodenal bulb at 9 and 12 o'clock positions and sent for any histopathologic evidence of celiac disease. No bleeding was noted from any of the visualized areas at the completion of examination. Photographs were taken of the duodenal bulb, gastric antrum, fundus, and distal esophagus. IMPRESSION: Columnar-lined distal esophagus. The patient tolerated the procedure well. [facility] /[id number]
== END 2019-08-26 10:08 | disposition home or self-care (01) ==
LOC: DL.SDS 06:32
PROVIDERS: ATTEND Internal Medicine Gastroenterology
DX: K31.89 Other diseases of stomach and duodenum (principal); R07.9 Chest pain, unspecified; E61.1 Iron deficiency; E66.09 Other obesity due to excess calories; Z88.2 Allergy status to sulfonamides; Z90.49 Acquired absence of other specified parts of digestive tract; Z68.37 Body mass index [BMI] 37.0-37.9, adult
CPT/HCPCS: 43239; 87077; J2250; J3010; J7042

== ENCOUNTER 2019-12-21 23:31 | Emergency (ER) | payer MEDICAID ==
[2019-12-21 23:47] VITALS: BP 128/83; PULSE 77
[2019-12-22] MEDS ORDERED: Meclizine 12.5 MG Tab PO ONE (00:19)
--- NOTE | 2019-12-22 00:20 | EDM.PDOC ---
ED HPI GENERAL MEDICAL PROBLEM - General Chief Complaint: Headache Stated Complaint: LIGHT HEADED AND DIZZY Time Seen by Provider: 12/22/19 00:10 Source of Information: Reports: Patient History Limitations: Reports: No Limitations - History of Present Illness INITIAL COMMENTS - FREE TEXT/NARRATIVE: josephine comes emergency department today with complaints of headache and dizziness. For most the day she has had an unsteady gait as he feels like the room is spinning. When she closed her eyes and feels like the room is spinning. She has had no recent falls or head injury. She has no fever no chills. No change in visual acuity. No paresthesias of her upper or lower extremities. No change in the functionality of her upper or lower extremity. She's had some nausea without vomiting. No fever no chills. She has had some congestion and pressure in her left ear. No syncope no chest pain. She does have a mild headache and feels more like pressure. 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 Parietal Head Pain Score (Numeric/FACES): 8 - Related Data Allergies Allergy/AdvReac Type Severity Reaction Status Date / Time nickel Allergy Rash Verified 12/21/19 23:48 sulfamethoxazole Allergy Rash Verified 12/21/19 23:48 [From Bactrim] trimethoprim [From Bactrim] Allergy Rash Verified 12/21/19 23:48 Home Meds: Home Meds Acetaminophen [Tylenol Extra Strength] 500 mg PO Q6H PRN 01/28/19 [History] Ferrous Sulfate [Iron] 325 mg PO DAILY 12/21/19 [History] Omeprazole 40 mg PO DAILY 12/21/19 [History] Past Medical History - Past Health History Medical/Surgical History: Denies Medical/Surgical History HEENT History: Reports: Impaired Vision, Otitis Media Cardiovascular History: Reports: None Respiratory History: Reports: None, SOB Other Respiratory History: SOB IS A RECENT ONSET WITH EPIGASTRIC PAIN SHE IS HAVING, FEELS SOB MORE WHEN LYING DOWN Gastrointestinal History: Reports: Cholelithiasis, GERD Genitourinary History: Reports: None [employer] History: Reports: Musculoskeletal History: Reports: Arthritis, Back Pain, Chronic, Fracture Neurological History: Reports: Concussion Psychiatric History: Reports: ADD, Anxiety, Depression, Panic Attack Endocrine/Metabolic History: Reports: None Hematologic History: Reports: None Immunologic History: Reports: None Oncologic (Cancer) History: Reports: None Dermatologic History: Reports: Eczema Other Dermatologic History: ECZEMA ON ELBOWS - Infectious Disease History Infectious Disease History: Reports: Chicken Pox - Past Surgical History Head Surgeries/Procedures: Reports: None HEENT Surgical History: Reports: None Cardiovascular Surgical History: Reports: None Respiratory Surgical History: Reports: None GI Surgical History: Reports: Cholecystectomy, Hernia, Abdominal Other GI Surgeries/Procedures: Umbilical hernia repair 2007 Female Surgical History: Reports: Section Other Female Surgeries/Procedures: X2 C-SECTIONS Endocrine Surgical History: Reports: None Neurological Surgical History: Reports: None Musculoskeletal Surgical History: Reports: ORIF, Other (See Below) Other Musculoskeletal Surgeries/Procedures:: left arm - History Comment History Comment: Please see Problem list for medical history. Social & Family History - Family History Family Medical History: Noncontributory Other Cardiac Family History: Mother: asthma, pneumonia, hypertension, heart condition. Father: hypertension, heart condition - Tobacco Use Smoking Status *Q: Never Smoker Second Hand Smoke Exposure: Yes - Caffeine Use Caffeine Use: Reports: Energy Drinks, Soda Caffeine Use Comment: 8. oz daily - Recreational Drug Use Recreational Drug Use: No - Living Situation & Occupation Living situation: Reports: with Significant Other Occupation: Employed ED ROS GENERAL - Review of Systems Review Of Systems: Comprehensive ROS is negative, except as noted in HPI. - Physical Exam Exam: See Below Exam Limited By: No Limitations General Appearance: Alert, WD/WN, No Apparent Distress Eye Exam: Bilateral Eye: EOMI, Normal Fundi, Nystagmus, PERRL Ears: Normal External Exam, Normal Canal, Normal TMs Nose: Normal Inspection, Normal Mucosa, No Blood Throat/Mouth: Normal Inspection, Normal Lips Head Exam: Atraumatic, Normocephalic Neck: Normal Inspection, Supple, Non-Tender Respiratory/Chest: No Respiratory Distress, Lungs Clear Cardiovascular: Normal Peripheral Pulses, Regular Rate, Rhythm GI/Abdominal: Normal Bowel Sounds, Soft, Non-Tender Neuro Exam (Abbreviated): Alert, Oriented, CN II-XII Intact, Normal Cognition, Normal Gait, Normal Reflexes, No Motor/Sensory Deficits, Other (Taras Hallpike positive to the left ear. With rotary nystagmus.) Back Exam: Normal Inspection, Full Range of Motion Extremities: Normal Inspection, Normal Range of Motion, Normal Capillary Refill Psychiatric: Normal Affect, Normal Mood Skin Exam: Warm, Dry, Intact, Normal Color, No Rash Course - Vital Signs Last Recorded V/S: Last Vital Signs Temp 36.5 C 12/21/19 23:42 Pulse 77 12/21/19 23:42 Resp 18 12/21/19 23:42 BP 128/83 12/21/19 23:42 Pulse Ox 100 12/21/19 23:42 - Orders/Labs/Meds Meds: Medications Discontinued Medications Generic Name Dose Route Start Last Admin Trade Name Maxi PRN Reason Stop Dose Admin Meclizine HCl 25 mg 12/22/19 00:19 12/22/19 00:26 Antivert PO 12/22/19 00:20 25 mg ONETIME ONE Administration - Re-Assessments/Exams Free Text/Narrative Re-Assessment/Exam: 12/22/19 00:18 Eply maneuver isolated to the left ear with complete resolution of the symptoms and feels much better no spinning. Meclizine 25mg PO. 12/22/19 01:15 She was observed and ambulated in the ED without difficulty. I discussed the concerns for vertigo or BPPV and that she appears somewhat dry as her lips are dry and her mouth as well. Lots of fluids over the next few days. PT referral for eval and treat for BPPV vertigo. Meclizine as needed and not to take prior to PT and she is comfortable with this plan and her questions answered. Departure - Departure Time of Disposition: 00:30 Disposition: Home, Self-Care 01 Clinical Impression: Vertigo - Discharge Information Instructions: How to Perform the Laci Maneuver, Dizziness, [id number] Referrals: PCP,None [Primary Care Provider] - Forms: ED Department Discharge Additional Instructions: Lots and lots of fluids over the next few days. Make position changes slowly. See physical therapy on monday for recheck and therapy for vertigo. Do not take Meclizine within 8 hrs of going to physical therapy. Meclizine, 1 tablet three times a day as needed for vertigo symptoms. #12. Return to the ED if new or worsening symptoms. Follow up with PCP in the next 4-6 days if not improving sooner if worse. Sepsis Event Note - Evaluation Sepsis Screening Result: No Definite Risk - Focused Exam Vital Signs: Vital Signs Temp Pulse Resp BP Pulse Ox 12/21/19 23:42 36.5 C 77 18 128/83 100 Date Exam was Performed: 12/22/19 Time Exam was Performed: 01:15 - Assessment/Plan Assessment:: VErtigo Plan: Lots and lots of fluids over the next few days. Make position changes slowly. See physical therapy on monday for recheck and therapy for vertigo. Do not take Meclizine within 8 hrs of going to physical therapy. Meclizine, 1 tablet three times a day as needed for vertigo symptoms. #12. Return to the ED if new or worsening symptoms. Follow up with PCP in the next 4-6 days if not improving sooner if worse.
== END 2019-12-22 00:40 | disposition home or self-care (01) ==
LOC: DL.ED 23:31
DX: R42 Dizziness and giddiness (principal); K21.9 Gastro-esophageal reflux disease without esophagitis; Z88.1 Allergy status to other antibiotic agents; Z91.048 Other nonmedicinal substance allergy status; Z79.899 Other long term (current) drug therapy
CPT/HCPCS: 99283; A9270

== ENCOUNTER 2020-01-02 22:57 | Emergency (ER) | payer MEDICAID ==
[2020-01-02 23:03] VITALS: BP 143/81; PULSE 71
--- NOTE | 2020-01-02 23:21 | EDM.PDOC ---
ED HPI GENERAL MEDICAL PROBLEM - General Chief Complaint: Respiratory Problem Stated Complaint: HARD TO BREATHE, CHEST HURTS Time Seen by Provider: 01/02/20 23:12 Source of Information: Reports: Patient, RN History Limitations: Reports: No Limitations - History of Present Illness INITIAL COMMENTS - FREE TEXT/NARRATIVE: 29 year old female who present to the ER with her significant other for complains of having chest pain after a coughing spell x 10 minutes ago. Patient reports she was talking wit her father on the phone when she started coughing so hard that her chest hurts. She states she was sitting "prop up on three pillows". She states her chest hurts taking deep breaths. She denies any fever , chills, URI's, , history of asthma and she does not smoke. She took a Tylenol prior to this ER visit. Chest Pain Score (Numeric/FACES): 8 - Related Data Allergies Allergy/AdvReac Type Severity Reaction Status Date / Time nickel Allergy Rash Verified 12/21/19 23:48 sulfamethoxazole Allergy Rash Verified 12/21/19 23:48 [From Bactrim] trimethoprim [From Bactrim] Allergy Rash Verified 12/21/19 23:48 Home Meds: Home Meds Acetaminophen [Tylenol Extra Strength] 500 mg PO Q6H PRN 01/28/19 [History] Ferrous Sulfate [Iron] 325 mg PO DAILY 12/21/19 [History] Omeprazole 40 mg PO DAILY 12/21/19 [History] Past Medical History - Past Health History Medical/Surgical History: Denies Medical/Surgical History HEENT History: Reports: Impaired Vision, Otitis Media Cardiovascular History: Reports: None Respiratory History: Reports: None, SOB Other Respiratory History: SOB IS A RECENT ONSET WITH EPIGASTRIC PAIN SHE IS HAVING, FEELS SOB MORE WHEN LYING DOWN Gastrointestinal History: Reports: Cholelithiasis, GERD Genitourinary History: Reports: None 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: Musculoskeletal History: Reports: Arthritis, Back Pain, Chronic, Fracture Neurological History: Reports: Concussion Psychiatric History: Reports: ADD, Anxiety, Depression, Panic Attack Endocrine/Metabolic History: Reports: None Hematologic History: Reports: None Immunologic History: Reports: None Oncologic (Cancer) History: Reports: None Dermatologic History: Reports: Eczema Other Dermatologic History: ECZEMA ON ELBOWS - Infectious Disease History Infectious Disease History: Reports: Chicken Pox - Past Surgical History Head Surgeries/Procedures: Reports: None HEENT Surgical History: Reports: None Cardiovascular Surgical History: Reports: None Respiratory Surgical History: Reports: None GI Surgical History: Reports: Cholecystectomy, Hernia, Abdominal Other GI Surgeries/Procedures: Umbilical hernia repair 2007 Female Surgical History: Reports: Section Other Female Surgeries/Procedures: X2 C-SECTIONS Endocrine Surgical History: Reports: None Neurological Surgical History: Reports: None Musculoskeletal Surgical History: Reports: ORIF, Other (See Below) Other Musculoskeletal Surgeries/Procedures:: left arm - History Comment History Comment: Please see Problem list for medical history. Social & Family History - Family History Family Medical History: Noncontributory Other Cardiac Family History: Mother: asthma, pneumonia, hypertension, heart condition. Father: hypertension, heart condition - Tobacco Use Smoking Status *Q: Current Status Unknown Second Hand Smoke Exposure: No - Caffeine Use Caffeine Use: Reports: Coffee, Energy Drinks, Soda, Tea Caffeine Use Comment: 8. oz daily - Recreational Drug Use Recreational Drug Use: No - Living Situation & Occupation Living situation: Reports: with Significant Other Occupation: Employed ED ROS GENERAL - Review of Systems Review Of Systems: Comprehensive ROS is negative, except as noted in HPI. ED EXAM, GENERAL - Physical Exam Exam: See Below Exam Limited By: No Limitations General Appearance: Alert, Moderate Distress Ears: Normal External Exam, Normal Canal, Hearing Grossly Normal, Normal TMs Ear Exam: Bilateral Ear: Canal Normal, TM normal Nose: Normal Inspection, Normal Mucosa, No Blood Throat/Mouth: Normal Inspection, Normal Lips, Normal Teeth, Normal Gums, Normal Oropharynx, Normal Voice, No Airway Compromise Head: Atraumatic, Normocephalic Neck: Normal Inspection, Supple, Non-Tender, Full Range of Motion Respiratory/Chest: Lungs Clear, Normal Breath Sounds, No Accessory Muscle Use, Other (mild pain noted with palpation of the sternum.) Cardiovascular: Normal Peripheral Pulses, Regular Rate, Rhythm, No Edema, No Gallop, No JVD, No Murmur, No Rub Neurological: Alert, Oriented Psychiatric: Normal Affect, Normal Mood Skin Exam: Warm, Intact Lymphatic: No Adenopathy Course - Vital Signs Last Recorded V/S: Last Vital Signs Temp 97.8 F 01/02/20 23:02 Pulse 71 01/02/20 23:02 Resp 20 01/02/20 23:02 BP 143/81 H 01/02/20 23:02 Pulse Ox 99 01/02/20 23:02 - Re-Assessments/Exams Free Text/Narrative Re-Assessment/Exam: Reviewed exam findings with patient. Recommended ibuprofen 600 mg with meals as needed. Vital signs normal at this visit. Departure - Departure Time of Disposition: 23:22 Disposition: Home, Self-Care 01 Condition: Good Clinical Impression: Costochondral pain - Discharge Information Instructions: Costochondritis, [id number] Additional Instructions: Review instructions on AVS and follow up with PCP in the clinic. Sepsis Event Note - Evaluation Sepsis Screening Result: No Definite Risk - Focused Exam Vital Signs: Vital Signs Temp Pulse Resp BP Pulse Ox 01/02/20 23:02 97.8 F 71 20 143/81 H 99 Date Exam was Performed: 01/02/20 Time Exam was Performed: 23:11
== END 2020-01-02 23:29 | disposition home or self-care (01) ==
LOC: DL.ED 22:57
DX: R07.1 Chest pain on breathing (principal); K21.9 Gastro-esophageal reflux disease without esophagitis; M19.90 Unspecified osteoarthritis, unspecified site; Z88.8 Allergy status to other drugs, medicaments and biological substances; Z88.2 Allergy status to sulfonamides; Z79.899 Other long term (current) drug therapy
CPT/HCPCS: 99284

== ENCOUNTER 2020-01-04 18:53 | Emergency (ER) | payer MEDICAID | END 2020-01-04 21:53 | disposition left against medical advice (07) | LOC: DL.ED 18:53 | DX: Z53.21 Procedure and treatment not carried out due to patient leaving prior to being seen by health care provider (principal) ==

== ENCOUNTER 2020-05-06 04:43 | Emergency (ER) | payer MEDICAID ==
[2020-05-06] MEDS ORDERED: Famotidine 20 MG/2 ML SDV IV ONE (04:44)
[2020-05-06] MEDS ORDERED: GI Cocktail Oral Solution 30 ML PO ONE (04:44)
[2020-05-06] MEDS ORDERED: Ondansetron 4 MG Tab.DIS PO ONE (04:44)
[2020-05-06] MEDS ORDERED: Metoclopramide 10 MG/2 ML SDV IV ONE (04:44)
[2020-05-06] MEDS ORDERED: Aluminum Hydroxide/Magnesium Hydroxide/Simethicone Susp 30 ML Cup ONE (05:31)
[2020-05-06] MEDS ORDERED: Ondansetron 4 MG Tab.DIS ONE (05:31)
[2020-05-06] MEDS ORDERED: Famotidine 20 MG/2 ML SDV ONE (06:20)
[2020-05-06] MEDS ORDERED: Metoclopramide 10 MG/2 ML SDV ONE (06:20)
[2020-05-06] MEDS ORDERED: GI Cocktail Oral Solution 30 ML ONE (06:40)
== END 2020-05-06 07:15 | disposition home or self-care (01) ==
LOC: DL.ED 04:43
DX: O99.612 Diseases of the digestive system complicating pregnancy, second trimester (principal); K21.9 Gastro-esophageal reflux disease without esophagitis; Z3A.18 18 weeks gestation of pregnancy
CPT/HCPCS: 81001; 99284; A9270; J2765; J3490

== ENCOUNTER 2020-07-18 20:40 | Observation (INO) | payer MEDICAID ==
[2020-07-18] MEDS ORDERED: hydrOXYzine HCl 25 MG Tab PO PRN (22:54)
[2020-07-18] MEDS ORDERED: NIFEdipine 10 MG Cap PO PRN (22:55)
[2020-07-18] MEDS ORDERED: Betamethasone Acetate/Betamethasone Sod Phosphate 30 MG/5 ML MDV IM SCH (23:00)
--- NOTE | 2020-07-18 23:15 | US ---
PROCEDURE INFORMATION: Exam: US , Transvaginal Exam date and time: 07/18/2020 10:09 PM Age: 30 years old Clinical indication: Lmp or gestational age (in weeks): 28w4d; Antepartum complications; Other: Cervical dialtion; ; Prior surgery; Surgery date: 6+ months; Surgery type: ; Patient HX: Cervical length due to cervical dilation at 28 weeks; Additional info: Cervical length due to cervical dilation at 28 wee TECHNIQUE: Imaging protocol: Real-time transvaginal obstetrical ultrasound of the maternal pelvis and a first trimester with image documentation. Transvaginal imaging was used for better evaluation of the fetus and adnexa. COMPARISON: No relevant prior studies available. FINDINGS: Gestation: Intrauterine gestation. MATERNAL: Cervix: Images of the cervix was performed demonstrating decreased cervical length 2.5 cm. No dilatation of the cervix was identified. Intraperitoneal space: A limited ultrasound of the pelvis was performed. There is a single intrauterine currently in the breech presentation. IMPRESSION: Shortened cervix with a cervical length of 2.5 cm. No evidence for dilatation of the internal os
[2020-07-18] MEDS: Acetaminophen 325 MG Tab PO PRN (23:40)
[2020-07-18] MEDS: NIFEdipine 10 MG Cap PO SCH (23:41)
[2020-07-19] MEDS: NIFEdipine 10 MG Cap PO SCH ×5 (00:06→17:41)
[2020-07-19] MEDS: metroNIDAZOLE 250 MG Tab PO SCH ×3 (00:41→12:17)
--- NOTE | 2020-07-19 01:00 | HP ---
CHIEF COMPLAINT: Pelvic pressure. HISTORY OF PRESENT ILLNESS: A 30-year-old 3, para 2-0-0-2, currently at 28-4/7 weeks' gestation presents to Labor and Delivery reporting pelvic pressure down even through the rectal area, making it feel like she has to have a bowel movement as well as some lower abdominal pressure coming around to the umbilicus. She admits that she has been busier than usual today, trying to complete numerous chores, but even when she sat down to rest and drank some cold water the pain continued. Pain comes and goes, but she denies true contractions. No vaginal bleeding, leakage of fluid, foul-smelling drainage, discharge. No symptoms of dysuria. She reports that she drinks at least 8 large cups of water a day, so she feels that she is well hydrated. She reports ever since having her gallbladder removed, her bowel movements are loose and she has usually 2 to 3 soft stools per day and that has been her norm. She and her fiance did have intercourse in the morning, but that typically does not cause her to have any discomfort. Otherwise, no preeclampsia symptoms. No other alarming acute new symptoms. OBSTETRICAL HISTORY: She has a history of 2 prior sections at term and planning repeat with tubal ligation this . care has been provided by Dr. Prasad. The patient's labs show she is blood type O positive. Rubella equivocal. Syphilis serology is nonreactive. Hepatitis B negative. HIV negative. Gonorrhea and chlamydia were negative. Thyroid was normal. Hepatitis C was negative. She has been treated for clue cells back in 03/2000. Her glucose tolerance test was 114. Her quad screen was normal. PROBLEM LIST: This includes history of urinary tract infection during noted in February, history of macrosomic infant, prior , history of gestational diabetes in a prior , and history of 2 prior C-sections, history of acute appendicitis with appendectomy during . PAST MEDICAL HISTORY: Polycystic ovarian syndrome, morbid obesity, psoriasis, reactive airway disease, and recurrent urinary tract infections. PAST SURGICAL HISTORY: section x2, hernia repair with mesh, laparotomy, cholecystectomy, wrist surgery, and appendectomy. FAMILY HISTORY: Mother with asthma and diabetes. Sister with asthma. Another sister with Factor V Leiden with 2nd . Paternal grandmother has colon cancer. Paternal grandfather has glaucoma and heart disease. Otherwise, family history is unremarkable. SOCIAL HISTORY: The patient lives with her fiance and daughter and son as well as 2 other adult roommates. 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 MEDICATIONS: vitamins 1 daily, iron 325 mg daily, Tylenol 325 mg as needed. ALLERGIES: Bactrim causes flushing, nickel and other environmental ointments, and [id number] called [place]. REVIEW OF SYSTEMS: Pertinent positives and negatives as listed under the history of present illness. OBJECTIVE: General: Pleasant 30-year-old female in no acute distress. Vital Signs: Temperature is 97.9, pulse 93, blood pressure 133/82, respiratory rate of 16. HEENT: Remarkable for gingivitis and teeth in poor hygiene. Otherwise, unremarkable. Heart: Regular without murmur. Lungs: Clear to auscultation bilaterally. Abdomen: Gravid, soft, nontender. Positive bowel sounds. heart tone tracing at 140 beats per minute at baseline with moderate [id number] variability and some accelerations are noted. [place] shows no uterine activity. No contractions. Cervix: Exam per my nurse is 1 cm dilated, 25% effaced, and soft consistency. Extremities: 1+ pitting edema bilaterally. No erythema or tenderness. Skin: Warm, dry, appropriate for race. She has numerous little bug bites and small contusions. Neurological: No focal deficits noted. Psychiatric: Appropriate mood, insight, and judgment. STUDIES: Ultrasound shows cervical length of 2.5 cm. No evidence for dilatation of the internal os. Baby is currently breech. LABORATORY: Urine specific gravity of greater than 1.030, trace protein, moderate epi's, moderate calcium oxalate crystals, negative leukocyte esterase, negative ketones, and white blood cells 0-5. ASSESSMENT: 1. 28-4/7 weeks' intrauterine . 2. Pelvic pressure, question if this is due to some labor, possibility with her mildly shortened cervix or possibly related to scar tissue in the abdomen from her numerous prior surgeries as well as just being overly active today and possibly triggered by intercourse and the bacterial vaginosis. 3. Bacterial vaginosis. 4. Morbid obesity. 5. History of macrosomic infant. 6. History of gestational diabetes, prior . 7. Rubella equivocal. PLAN: I called and spoke with Dr. Duckworth, PERINATAL TECH on-call at [facility]. I let her know that I was comfortable keeping the patient here for monitoring. We discussed keeping her here for both doses of her betamethasone so that we could keep her on the monitor for uterine activity. It is reasonable to load her with nifedipine 10 mg every 20 minutes for 4 doses and it is possible to discharge her home with the nifedipine as long as it seems to make her symptoms more tolerable and she is more comfortable with it. Over time, she would likely end up tapering herself off it, and if she is at low risk for labor, that would be acceptable. Going to give her some Tylenol to help deal with the headache that frequently is associated with the hypotension from the nifedipine and give her some Vistaril for sleep, metronidazole for the bacterial vaginosis, and a K-pad for her history of some sciatica and low back pain that she has had. Her questions were answered and she was comfortable with the plan of care. [facility] /[id number] MTDD
[2020-07-19] MEDS: Acetaminophen 325 MG Tab PO PRN (09:08)
--- NOTE | 2020-07-19 14:53 | PN ---
DATE: 07/19/2020 SUBJECTIVE: Patient has done well, mostly slept overnight. Denies feeling any contractions. Still has some of the various pelvic pressure and pelvic pains that she came in for but nothing regular. She is voiding without difficulties, ambulating without problems, tolerating the nifedipine well. Has not drank very much water overnight, but she has also been sleeping essentially through the whole night. No new concerns today. No vaginal bleeding or leakage of fluid. movement has been good. OBJECTIVE: Vital Signs: Blood pressure 116/60, pulse rate of 88, temperature is 98.0, and respiratory rate of 16. Heart: Regular without murmur. Lungs: Clear to auscultation bilaterally. Abdomen: Soft, nontender. Gravid uterus. heart tones 130 beats per minute at baseline with moderate [id number] variability and accelerations noted. [place] shows mostly a quiet uterus, occasional irritability and rare contraction. Category 1 tracing. Cervical exam: Per the nurse who examined her upon admission, her cervix is unchanged in the previous 7 hours. Extremities: Trace edema bilaterally. ASSESSMENT: 1. A 28-5/7 weeks intrauterine . 2. Pelvic pressure, questionable contractions. 3. Short cervix, 2.5 cm. 4. History of x2. 5. History of appendectomy during this . 6. Bacterial vaginosis. PLAN: Continue watching her in the hospital, see if she starts having more regular contractions. Dose of steroid this evening and then she could potentially go home or get discharged in the morning. She will follow up with her doctor in the office. As long as things stay quiet, she would be able to continue working. However, with this episode and short cervix, I would recommend cutting back on work to 4 hours a week at least until she follows up with her primary. Her fiance would prefer that she not work at all. Their questions were answered. Upon discharge, she will be given labor precautions and essentially told at least take it easy through the remainder of the but that bed rest is not proving beneficial for prevention of labor and delivery. [facility] /[id number]
[2020-07-19] MEDS ORDERED: NIFEdipine 10 MG Cap ONE (18:20)
[2020-07-19] MEDS ORDERED: Betamethasone Acetate/Betamethasone Sod Phosphate 30 MG/5 ML MDV IM ONE (23:30)
[2020-07-19 23:47] VITALS: BP 114/57; PULSE 93
[2020-07-19] MEDS ORDERED: NIFEdipine 10 MG Cap PO ONE (23:50)
--- NOTE | 2020-07-21 23:51 | DISCH ---
ADMITTING DIAGNOSES: 1. A 28-4/7 weeks gestation. 2. Pelvic pressure, question possible early labor. 3. Mildly shortened cervix. 4. Bacterial vaginosis. 5. Morbid obesity. 6. History of macrosomic . 7. History of gestational diabetes, prior . 8. Rubella equivocal. 9. Poor dental hygiene with gingivitis. DISCHARGE DIAGNOSES: 1. A 28-4/7 weeks gestation. 2. Pelvic pressure, question possible early labor. 3. Mildly shortened cervix. 4. Bacterial vaginosis. 5. Morbid obesity. 6. History of macrosomic . 7. History of gestational diabetes, prior . 8. Rubella equivocal. 9. Poor dental hygiene with gingivitis. 10. labor ruled out, but the patient having contractions. BRIEF HISTORY: A 30-year-old female, 3, para 2-0-0-2, seen in the hospital at 28-4/7 weeks gestation, complaining of some pelvic pressure. Denying symptoms of dysuria. Having some mild vaginal leakage, recently had intercourse, and was not sure if she was having any contractions, but felt she needed evaluation. HOSPITAL COURSE: Was good. 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 Wet prep showed bacterial vaginosis. Urinalysis ruled out for urinary tract infection, but had a high specific gravity despite the patient saying that she was drinking a lot of fluids every day. Cervical length ultrasound showed a 2.5 cm long cervix. A call was made to [facility] to verify treatment plan, and the patient was given 2 doses of betamethasone and loaded with nifedipine, which was continued every 8 hours, and she was also started on metronidazole 500 mg p.o. b.i.d. Discussed with Dr. Duckworth that this is some shortening of the cervix, however, not labor, and nifedipine could be used and continued as an outpatient, and the patient would be likely to get tired of taking it essentially and taper herself off the medication, which would be fine as long as she did not have any resumption of labor symptoms and expect that things would improve with treatment of her bacterial vaginosis as well. DISCHARGE DAY EXAMINATION: See my progress note from the morning of 07/19/2020. DISCHARGE CONDITION: Was good. Temperature is 97.2, pulse 93, blood pressure 114/57, and respiratory rate of 76. The patient was rechecked by the same nurse who checked her upon admission and verified there was no cervical change. DISCHARGE MEDICATIONS: Metronidazole 500 mg p.o. b.i.d., nifedipine 20 mg every 8 hours, and Tylenol as needed for headache. Continue vitamin 1 daily. DISPOSITION: She is to go home and take it easy for the next couple of days. FOLLOWUP: She should see her regular doctor for her next routine scheduled clinic appointment and anticipate that she may need to cut back on her work, but she does not need to be off work altogether. The patient needs to continue taking her medications as prescribed and return if she has any other symptoms of labor, and labor education was provided to her in verbal and written format. [facility] /[id number]
== END 2020-07-19 23:51 | disposition home or self-care (01) ==
LOC: DL.OBCHECK 20:40 → DL.OB 22:51
PROVIDERS: ADMIT Family Medicine; ATTEND Family Medicine
DX: O47.03 False labor before 37 completed weeks of gestation, third trimester (principal); O26.873 Cervical shortening, third trimester; O23.593 Infection of other part of genital tract in pregnancy, third trimester; B96.89 Other specified bacterial agents as the cause of diseases classified elsewhere; O99.213 Obesity complicating pregnancy, third trimester; E66.01 Morbid (severe) obesity due to excess calories; O98.513 Other viral diseases complicating pregnancy, third trimester; O99.613 Diseases of the digestive system complicating pregnancy, third trimester; K05.10 Chronic gingivitis, plaque induced; Z87.59 Personal history of other complications of pregnancy, childbirth and the puerperium; Z3A.28 28 weeks gestation of pregnancy
CPT/HCPCS: 76817; 81001; 87210; 96372; A9270; G0378; J0702

== ENCOUNTER 2023-02-09 16:04 | Emergency (ER) | payer MEDICAID, OTHER ==
[2023-02-09] MEDS ORDERED: Sodium Chloride 0.9% 10 ML Syringe FLUSH PRN (16:15)
[2023-02-09 16:22] VITALS: PULSE 84
[2023-02-09 17:15] LABS: ANION GAP 11.6 mEq/L (7-13)
[2023-02-09 17:36] VITALS: BP 140/88
== END 2023-02-09 17:36 | disposition home or self-care (01) ==
LOC: DL.ED 16:04
DX: R00.2 Palpitations (principal); E66.9 Obesity, unspecified; Z68.41 Body mass index [BMI] 40.0-44.9, adult; Z88.1 Allergy status to other antibiotic agents; Z91.048 Other nonmedicinal substance allergy status
CPT/HCPCS: 36415; 71045; 80053; 81001; 83880; 84484; 85025; 93005; 93010; 99284; 99285; J3490